=== PATIENT | male | born 1970 | race Two or more races ===

== ENCOUNTER 2020-07-31 14:36 | Outpatient (CLI) | payer BC ==
[2020-07-31 16:13] LABS: BASOPHILS # (AUTO) 0.1 /CMM (0.0-0.2); BASOPHILS % (AUTO) 0.8 % (0.0-2.0); EOSINOPHILS % (AUTO) 3.6 % (0.0-6.0); HEMATOCRIT 49 % (39-51); HEMOGLOBIN 16.3 g/dL (13.5-17.5); LYMPHOCYTES # (AUTO) 1.7 /CMM (0.8-4.8); LYMPHOCYTES % (AUTO) 26.7 % (20.0-44.0); MEAN CORPUSCULAR HGB CONC 33 g/dl (31.0-36.0); MEAN CORPUSCULAR VOLUME 91 fL (80-96); MONOCYTES # (AUTO) 0.6 /CMM (0.1-1.30); MONOCYTES % (AUTO) 9.4 % (2.0-12.0); NEUTROPHILS # (AUTO) 3.9 /CMM (1.8-8.9); NEUTROPHILS % (AUTO) 59.5 % (43.0-81.0); PLATELET COUNT (AUTO) 209 /CMM (150-450); RED BLOOD CELL COUNT(AUTO) 5.33 MIL/uL (4.5-6.0); WHITE BLOOD COUNT (AUTO) 6.5 K/uL (4.3-11.0)
[2020-07-31 16:24] LABS: BILIRUBIN,URINE NEGATIVE (NEGATIVE); COLOR,URINE YELLOW (YELLOW); LEUKOCYTE ESTERASE ,URINE NEGATIVE (NEGATIVE); NITRITE, URINE NEGATIVE (NEGATIVE); PH,URINE 5.5 (5.0-8.0); PROTEIN,URINE NEGATIVE (NEGATIVE); UGLUCOSE NEGATIVE (NEGATIVE); UROBILINOGEN,URINE 0.2 EU/dL (0.2)
[2020-07-31 16:45] LABS: CREATININE, URINE 182.3 MG/DL (30.0-125.0); URINE TOTAL PROTEIN 12.5 mg/dL (0-11.9)
[2020-07-31 17:00] LABS: CHOLESTEROL 130 mg/dL (<200); FREE T4 (FREE THYROXINE) 0.87 ng/dL (0.76-1.46); HDL CHOLESTEROL 30 mg/dL (40-60); LDL 76 mg/dL (0-99); THYROID STIMULATING HORMONE 2.015 uIU/mL (0.358-3.74)
[2020-07-31 17:57] LABS: CALCIUM, SERUM 8.8 mg/dL (8.5-10.1); CARBON DIOXIDE 25 mmol/L (21-32); CHLORIDE 110 mmol/L (98-107); CREATININE 1.2 mg/dL (0.6-1.3); GLUCOSE 102 mg/dL (74-106); PHOSPHORUS 2.7 mg/dL (2.5-4.9); POTASSIUM 4.5 mmol/L (3.5-5.1); SODIUM SERUM 144 mmol/L (136-145); UREA NITROGEN, BLOOD 11 mg/dL (7-18)
[2020-07-31 17:58] LABS: ALANINE AMINOTRANSFERASE 35 U/L (12-78); ALBUMIN 3.7 g/dL (3.4-5.0); ALKALINE PHOSPHATASE 90 U/L (46-116); ASPARTATE AMINOTRANSFERASE 14 U/L (15-37); TOTAL PROTEIN, SERUM 7.3 g/dL (6.4-8.2)
[2020-07-31 17:59] LABS: C-REACTIVE PROTEIN < 0.2 mg/dL (0.0-0.9)
== END 2020-07-31 23:59 | disposition home or self-care (01) ==
LOC: MSC 14:36
PROVIDERS: ATTEND Internal Medicine
DX: R05 Cough (principal); K21.9 Gastro-esophageal reflux disease without esophagitis; F41.9 Anxiety disorder, unspecified; F32.9 Major depressive disorder, single episode, unspecified; G43.909 Migraine, unspecified, not intractable, without status migrainosus
CPT/HCPCS: 36415; 71045-TC; 80053-TC; 80061-TC; 82306; 82570-TC; 82607-TC; 83735-TC; 84100-TC; 84155-TC; 84439-TC; 84443-TC; 85025-TC; 85652-TC; 86140-TC

== ENCOUNTER 2021-08-02 11:35 | Emergency (ER) | payer BC ==
[~2021-08-02] VITALS: Ht 188 cm; Wt 97.5 kg
--- NOTE | 2021-08-02 12:21 | NUR ---
TO ER BED 10, FROM HOME C/O FLANK PAIN CAME BACK YESTERDAY,OUT OF PAIN MEDS,DIAGNOSED W/ RENAL STONE 07/22/20, AAOX3, BREATHING EVEN AND NON LABORED, CONNECTED TO MONITOR, AWAITING MD JOLLY
--- NOTE | 2021-08-02 13:35 | NUR ---
urine sample sent to lab
[2021-08-02] MEDS ORDERED: KETOROLAC TROMETHAMINE INJ 30 MG/ML VIAL IV ONE (14:30)
[2021-08-02 14:33] LABS: CALCIUM, SERUM 8.9 mg/dL (8.5-10.1); CREATININE 1.2 mg/dL (0.6-1.3); POTASSIUM 4.4 mmol/L (3.5-5.1)
[2021-08-02] MEDS ORDERED: KETOROLAC TROMETHAMINE INJ 30 MG/ML VIAL ONE (14:34)
[2021-08-02 14:43] LABS: BILIRUBIN,URINE NEGATIVE (NEGATIVE); LEUKOCYTE ESTERASE ,URINE NEGATIVE (NEGATIVE); NITRITE, URINE NEGATIVE (NEGATIVE); PH,URINE 5.5 (5.0-8.0); PROTEIN,URINE NEGATIVE (NEGATIVE); UGLUCOSE NEGATIVE (NEGATIVE); UROBILINOGEN,URINE 0.2 EU/dL (0.2)
[2021-08-02 14:54] LABS: COLOR,URINE STRAW (YELLOW)
[2021-08-02 15:50] LABS: BACTERIA,URINE None seen /HPF (None Seen); SQUAMOUS EPITHELIAL CELL,UR 0-2 /HPF (None Seen); WBC,URINE 0-2 /HPF (0-3)
[2021-08-02] MEDS ORDERED: HYDR-3980 PO (16:21)
[2021-08-02] MEDS ORDERED: IBUP-1957 PO (16:21)
[2021-08-02] MEDS ORDERED: TAMS-12 PO (16:22)
[2021-08-02 16:41] VITALS: BP 151/82
--- NOTE | 2021-08-02 16:41 | NUR ---
IV removed. Catheter intact and site benign. Pressure and 4x4 applied to site. No bleeding noted.Patient discharged to home in stable condition. Written and verbal after care instructions given. Patient verbalizes understanding of instruction.
== END 2021-08-02 16:42 | disposition home or self-care (01) ==
LOC: ER 11:42
DX: N20.0 Calculus of kidney (principal); Z87.442 Personal history of urinary calculi; Z60.2 Problems related to living alone; Z79.899 Other long term (current) drug therapy
CPT/HCPCS: 36415; 76770; 80048; 81001; 96374; 99284; J1885